=== PATIENT | female | born 1980 | race Caucasian/White ===

== ENCOUNTER 2016-11-13 17:00 | Emergency (ER) | payer OTHER ==
[~2016-11-13] VITALS: Ht 162.6 cm; Wt 66.2 kg
[2016-11-13 20:00] VITALS: BP 122/68
== END 2016-11-13 20:10 | disposition home or self-care (01) ==
LOC: EME 17:00
DX: M54.2 Cervicalgia (principal); V49.40XA Driver injured in collision with unspecified motor vehicles in traffic accident, initial encounter
CPT/HCPCS: 70450; 72125; 73610; 99281; 99283